=== PATIENT | male | born 1985 | race Hispanic/Latino ===

== ENCOUNTER 2017-03-17 01:45 | Emergency (ER) | payer OTHER ==
[2017-03-17 01:54] VITALS: BMI 28.4
[2017-03-17 01:57] VITALS: BP 168/100; PULSE 115; RESP 18; TEMP 97.8; O2SAT 98
[2017-03-17] MEDS ORDERED: Lidocaine 1% Inj (20ml) ONE (02:22)
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
[2017-03-17] MEDS ORDERED: Oxycodone/Acetaminophen 5/325 mg Tab PO STA (03:36)
[2017-03-17] MEDS ORDERED: Oxycodone/Acetaminophen 5/325 mg Tab ONE (03:41)
--- NOTE | 2017-03-17 12:06 | CT ---
PROCEDURE: CT HEAD WITHOUT CONTRAST. HISTORY: head injury, ETOH COMPARISON: None available. TECHNIQUE: Axial computed tomography images were obtained through the head/brain without intravenous contrast. Radiation dose: Total exam DLP = 973.16 mGy-cm. This CT exam was performed using one or more of the following dose reduction techniques: Automated exposure control, adjustment of the mA and/or kV according to patient size, and/or use of iterative reconstruction technique. FINDINGS: HEMORRHAGE: No intracranial hemorrhage. BRAIN: Normal odell-white matter differentiation and density are appreciated throughout the cerebrum and cerebellum with the brainstem appearing unremarkable as well. There is no mass effect. There is no suspicious extra-axial fluid collection and the midline brain anatomy appears diffusely unremarkable. VENTRICLES: Unremarkable. No hydrocephalus. CALVARIUM: No destructive bony lesion or displaced fracture identified including through the skullbase. PARANASAL SINUSES: Mucoid material or polyp at right maxillary sinus. MASTOID AIR CELLS: Unremarkable as visualized. No inflammatory changes. OTHER FINDINGS: Small left frontal scalp hematoma identified. IMPRESSION: Unremarkable unenhanced CT of the Head. Left frontal scalp hematoma identified. No fracture of the calvarium and skull base identified throughout. Concordant preliminary report from [facility], 03/17/2017.
== END 2017-03-17 03:47 | disposition home or self-care (01) ==
LOC: H.ER 01:45
DX: S01.81XA Laceration without foreign body of other part of head, initial encounter (principal); S00.03XA Contusion of scalp, initial encounter; W25.XXXA Contact with sharp glass, initial encounter; Y92.89 Other specified places as the place of occurrence of the external cause